=== PATIENT | female | born 1985 | race American Indian/Alaskan Native ===

== ENCOUNTER 2018-04-04 05:48 | Inpatient (IN) | payer OTHER ==
[2018-04-04 06:37] LABS: Basophils # (Auto) 0.1 K/mm3 (0.0-0.1); Basophils % (Auto) 0.5 % (0.0-1.8); Eosinophils # (Auto) 0.1 K/mm3 (0.0-0.4); Eosinophils % (Auto) 0.5 % (0.0-4.3); Hemoglobin 15.3 gm/dl (10.1-14.3); Lymphocytes # (Auto) 1.8 K/mm3 (1.2-5.4); Lymphocytes % (Auto) 9.7 % (13.4-35.0); Mean Corpuscular HGB Conc 34 % (30-34); Mean Corpuscular Hemoglobin 31 pg (28-32); Mean Corpuscular Volume 91 fl (79-97); Monocytes # (Auto) 1.8 K/mm3 (0.0-0.8); Monocytes % (Auto) 10.1 % (0.0-7.3); Platelet Count 478 K/mm3 (140-440); Red Blood Count 4.93 M/mm3 (3.65-5.03); Red Cell Distribution Width 13.2 % (13.2-15.2)
[2018-04-04 07:10] LABS: Alanine Aminotransferase 12 units/L (7-56); Albumin 4.2 g/dL (3.9-5); BUN/Creatinine Ratio 16; Blood Urea Nitrogen 13 mg/dL (7-17); Calcium 9.7 mg/dL (8.4-10.2); Hemolysis Index 0
[2018-04-04] MEDS ORDERED: ZOSYN/NS 4.5GM/100ML 4.5 GM/100 ML VIAL IV ONE (08:55)
[2018-04-04] MEDS ORDERED: NACL 0.9% 1000 ML 1,000 ML IV ONE (08:55)
[2018-04-04] MEDS ORDERED: SUBLIMAZE IV ONE ×2 (08:55→10:00)
[2018-04-04] MEDS ORDERED: ZOFRAN IV ONE (08:55)
--- NOTE | 2018-04-04 08:59 | Emergency Department Report ---
ED Abdominal Pain HPI - General Chief Complaint: Abdominal Pain Stated Complaint: ABD PAIN Time Seen by Provider: 04/04/18 08:49 Source: patient Mode of arrival: Ambulatory Limitations: No Limitations - History of Present Illness Initial Comments: Patient is 32 years old female history diabetes and asthma. Patient presented his abdominal pain for the last 2-3 days associated with his nausea vomiting and diarrhea. Patient described her pain as sharp and crampy sometimes. Pain associated with his fever. Patient stated that she had a test 2 weeks ago and it was positive. She denied any vaginal bleeding or vaginal discharge at this moment. No urinary symptoms. MD Complaint: abdominal pain -: days(s) Location: diffuse, suprapubic Radiation: none Migration to: no migration Severity scale (0 -10): 10 Quality: sharp - Related Data Allergies Allergy/AdvReac Type Severity Reaction Status Date / Time No Known Allergies Allergy Verified 04/04/18 06:06 ED Review of Systems ROS: Stated complaint: ABD PAIN Other details as noted in HPI Comment: All other systems reviewed and negative Constitutional: fever. denies: chills Respiratory: denies: cough, orthopnea, shortness of breath, SOB with exertion Cardiovascular: denies: chest pain, palpitations, dyspnea on exertion Gastrointestinal: abdominal pain, nausea, vomiting, diarrhea. denies: constipation, hematemesis, melena Musculoskeletal: denies: back pain Neurological: denies: headache, weakness, numbness, paresthesias, confusion ED Past Medical Hx - Past Medical History Previous Medical History?: Yes Hx Hypertension: Yes Hx Diabetes: Yes Hx Asthma: Yes - Surgical History Past Surgical History?: Yes Additional Surgical History: x1 - Social History Smoking Status: Current Every Day Smoker Substance Use Type: None ED Physical Exam - General Limitations: No Limitations General appearance: alert, in no apparent distress - Head Head exam: Present: atraumatic, normocephalic - Eye Eye exam: Present: normal appearance - ENT ENT exam: Present: normal exam, normal orophraynx, mucous membranes dry - Neck Neck exam: Present: normal inspection, full ROM. Absent: tenderness, meningismus, lymphadenopathy, thyromegaly - Respiratory Respiratory exam: Present: normal lung sounds bilaterally. Absent: respiratory distress, wheezes, rales, rhonchi, stridor, chest wall tenderness, accessory muscle use, decreased breath sounds, prolonged expiratory - Cardiovascular Cardiovascular Exam: Present: regular rate, normal rhythm, normal heart sounds - GI/Abdominal GI/Abdominal exam: Present: soft, normal bowel sounds. Absent: distended, tenderness, guarding, rebound, rigid, organomegaly, mass, bruit, pulsatile mass , hernia - Extremities Exam Extremities exam: Present: normal inspection, full ROM, normal capillary refill - Back Exam Back exam: Present: normal inspection, full ROM. Absent: tenderness, CVA tenderness (R), CVA tenderness (L), muscle spasm, paraspinal tenderness, vertebral tenderness - Neurological Exam Neurological exam: Present: alert, oriented X3, CN II-XII intact, normal gait, reflexes normal - Skin Skin exam: Present: warm, dry, intact ED Course Vital Signs 04/04/18 04/04/18 04/04/18 06:06 08:12 09:01 Temperature 100.1 F H 98.8 F Pulse Rate 117 H 110 H 117 H Respiratory 24 29 H 26 H Rate Blood Pressure 145/86 172/96 Blood Pressure 149/69 [Left] O2 Sat by Pulse 95 90 92 Oximetry 04/04/18 04/04/18 04/04/18 10:00 10:57 11:00 Temperature Pulse Rate 105 H 111 H Respiratory 27 H 16 Rate Blood Pressure 162/85 164/117 Blood Pressure [Left] O2 Sat by Pulse 96 96 97 Oximetry 04/04/18 04/04/18 12:00 13:01 Temperature Pulse Rate 105 H 108 H Respiratory 22 21 Rate Blood Pressure 164/83 126/79 Blood Pressure [Left] O2 Sat by Pulse 99 93 Oximetry ED Medical Decision Making - Lab Data Result diagrams: 04/04/18 06:15 04/04/18 06:15 - Radiology Data Radiology results: report reviewed Referring Physician: OLESYA DANIELSON Patient Name: JUAN M PEPE Date of : 1985 Sex: Female Report Date: 2018-04-04 Report Status: Finalized Findings [facility] [address] [place] [address] Cat Scan Report Signed Patient: JUAN M PEPE MR#: [id number] : 1985 Acct:[id number] Age/Sex: 32 / F ADM Date: 04/04/18 Loc: ED Attending Dr: Ordering Physician: OLESYA DANIELSON Date of Service: 04/04/18 Procedure(s): CT abdomen pelvis w con Accession Number(s): [id number] cc: OLESYA DANIELSON FINAL REPORT EXAM: CT ABDOMEN PELVIS W CON HISTORY: abdominal pain TECHNIQUE: CT of the abdomen and pelvis with IV contrast. Coronal and sagittal reconstructed imaging provided. PRIORS: None currently available. FINDINGS: ABDOMEN: Nonspecific patchy ground-glass opacities in both lung bases may be related to mosaic profusion. Heart size is within normal limits. No pericardial effusion. Prior cholecystectomy. Heterogeneous low attenuation to the liver may represent hepatocellular disease or fatty infiltration. No suspicious enhancement or lesions identified. Small hiatal hernia. Stomach is otherwise unremarkable. Spleen, pancreas, adrenals, and kidneys are unremarkable. There is no abdominal aortic aneurysm. No dissection. IVC is unremarkable. There is no periaortic or retroperitoneal adenopathy or mass. Jabb-pg-[id number] distended mid and distal small bowel loops identified. Some wall thickening particularly around the terminal ileum noted. Hyperemia identified. A few air-fluid levels identified. Appendix is normal. Fluid stool in the mildly distended cecum. Some mild wall thickening of the cecum and proximal ascending colon. Distal ascending colon to the rectum is collapsed which limits evaluation for wall thickening. No obvious stranding. No free air. Trace free fluid identified. Mesentery is unremarkable. Fat-containing umbilical hernia without strangulation. PELVIS: Lobulated enlarged uterus with heterogeneous attenuation suggests fibroid uterus. Small to moderate free fluid in the pelvis is nonspecific. Bladder is unremarkable. No wall thickening. There is no pelvic mass or adenopathy. Inguinal regions are unremarkable. Bones: No suspicious osseous lesions on this limited examination of the skeleton. Metastatic disease better evaluated with bone scan. IMPRESSION: Bowel findings suggest enterocolitis. Differential diagnosis would include low grade incomplete obstruction and ileus. Diarrhea suspected in the right proximal colon. No evidence for complete obstruction. Small to moderate free fluid in the abdomen pelvis is nonspecific. Findings could be related to enterocolitis. Fatty liver versus hepatocellular disease. Fatty liver favored. No distinct lesions. Suspect fibroid uterus. Correlation with pelvic ultrasound may be helpful if clinically indicated. Transcribed By: TYM Dictated By: GLORIA WONG MD Electronically Authenticated By: GLORIA WONG MD Signed Date/Time: 04/04/181132 DD/ 32 TD/TT: 04/04/181132 - Medical Decision Making I discussed the patient with Dr Brannon, he agreed to admit to his service. Critical care attestation.: If time is entered above; I have spent that time in minutes in the direct care of this critically ill patient, excluding procedure time. ED Disposition Clinical Impression: Abdominal pain, Enterocolitis Disposition: OP ADMIT IP TO THIS HOSP Is pt being admited?: Yes Condition: Stable Instructions: Abdominal Pain (ED) Referrals: PRIMARY CARE, [Primary Care Provider] - 3-5 Days
--- NOTE | 2018-04-04 11:38 | Cat Scan Report ---
FINAL REPORT EXAM: CT ABDOMEN PELVIS W CON HISTORY: abdominal pain TECHNIQUE: CT of the abdomen and pelvis with IV contrast. Coronal and sagittal reconstructed imaging provided. PRIORS: None currently available. FINDINGS: ABDOMEN: Nonspecific patchy ground-glass opacities in both lung bases may be related to mosaic profusion. Heart size is within normal limits. No pericardial effusion. Prior cholecystectomy. Heterogeneous low attenuation to the liver may represent hepatocellular disease or fatty infiltration. No suspicious enhancement or lesions identified. Small hiatal hernia. Stomach is otherwise unremarkable. Spleen, pancreas, adrenals, and kidneys are unremarkable. There is no abdominal aortic aneurysm. No dissection. IVC is unremarkable. There is no periaortic or retroperitoneal adenopathy or mass. [id number] distended mid and distal small bowel loops identified. Some wall thickening particularly around the terminal ileum noted. Hyperemia identified. A few air-fluid levels identified. Appendix is normal. Fluid stool in the mildly distended cecum. Some mild wall thickening of the cecum and proximal ascending colon. Distal ascending colon to the rectum is collapsed which limits evaluation for wall thickening. No obvious stranding. No free air. Trace free fluid identified. Mesentery is unremarkable. Fat-containing umbilical hernia without strangulation. PELVIS: Lobulated enlarged uterus with heterogeneous attenuation suggests fibroid uterus. Small to moderate free fluid in the pelvis is nonspecific. Bladder is unremarkable. No wall thickening. There is no pelvic mass or adenopathy. Inguinal regions are unremarkable. Bones: No suspicious osseous lesions on this limited examination of the skeleton. Metastatic disease better evaluated with bone scan. IMPRESSION: Bowel findings suggest enterocolitis. Differential diagnosis would include low grade incomplete obstruction and ileus. Diarrhea suspected in the right proximal colon. No evidence for complete obstruction. Small to moderate free fluid in the abdomen pelvis is nonspecific. Findings could be related to enterocolitis. Fatty liver versus hepatocellular disease. Fatty liver favored. No distinct lesions. Suspect fibroid uterus. Correlation with pelvic ultrasound may be helpful if clinically indicated.
[2018-04-04] MEDS ORDERED: TORADOL IV ONE (12:00)
[2018-04-04] MEDS ORDERED: TORADOL ONE (12:06)
[2018-04-04 12:25] LABS: Bilirubin,Urine NEG (Negative); Blood,Urine NEG (Negative); Color,Urine Yellow (Yellow); Mucus,Urine FEW /HPF
[2018-04-04 12:30] LABS: HCG Qualitative,Urine Negative (Negative)
[2018-04-04] MEDS ORDERED: SODIUM CHLORIDE FLUSH SYRINGE 10 ML IV PRN (20:35)
[2018-04-04] MEDS ORDERED: ZOFRAN IV PRN (20:35)
[2018-04-04] MEDS ORDERED: TYLENOL PO PRN (20:35)
[2018-04-04] MEDS: FLAGYL 500 MG/100 ML 500 MG/100 ML BAG IV SCH (22:50)
[2018-04-04] MEDS: PEPCID IV SCH (22:52)
[2018-04-05] MEDS: MORPHINE IV PRN ×3 (00:03→17:52)
[2018-04-05] MEDS: D5NS 1,000 ML IV SCH ×3 (03:00→17:34)
--- NOTE | 2018-04-05 06:27 | History and Physical Report ---
History of Present Illness Date of examination: 04/04/18 Date of admission: 04/04/18 16:07 Chief complaint: CC Abdominal pain 2 to 3 days History of present illness: History of Present Illness: Patient is 32 years old female history diabetes and asthma. Patient presented with abdominal pain for the last 2-3 days associated with his nausea vomiting and diarrhea. Patient described her pain as sharp and crampy sometimes. Pain associated with his fever. Patient stated that she had a test 2 weeks ago and it was positive. She denied any vaginal bleeding or vaginal discharge at this moment. No urinary symptoms. MD Complaint: abdominal rick -: days(s) Location: diffuse, suprapubic Radiation: none Migration to: no migration Severity scale (0 -10): 10 Quality: sharp Past Medical History Previous Medical History?: Yes Hx Hypertension: Yes Hx Diabetes: Yes Hx Asthma: Yes Surgical History Past Surgical History?: Yes Additional Surgical History: x1 Social History Smoking Status: Current Every Day Smoker Substance Use Type: None ROS: Stated complaint: ABD PAIN Other details as noted in HPI Comment: All other systems reviewed and negative Constitutional: fever. denies: chills Respiratory: denies: cough, orthopnea, shortness of breath, SOB with exertion Cardiovascular: denies: chest pain, palpitations, dyspnea on exertion Gastrointestinal: abdominal pain, nausea, vomiting, diarrhea. denies: constipation, hematemesis, melena Musculoskeletal: denies: back pain Neurological: denies: headache, weakness, numbness, paresthesias, confusion Medications and Allergies Allergies Allergy/AdvReac Type Severity Reaction Status Date / Time No Known Allergies Allergy Verified 04/04/18 06:06 Active Meds: Active Medications Acetaminophen (Tylenol) 650 mg PO Q4H PRN PRN Reason: Pain MILD(1-3)/Fever >100.5/DIAZ Famotidine (Pepcid) 20 mg IV BID PABLO Last Admin: 04/04/18 22:52 Dose: 20 mg Dextrose/Sodium Chloride (D5ns) 1,000 mls @ 100 mls/hr IV DIRECT PABLO Last Admin: 04/05/18 03:00 Dose: 100 mls/hr Piperacillin Sod/Tazobactam Sod (Zosyn/Ns 4.5gm/100ml) 4.5 gm in 100 mls @ 200 mls/hr IV Q8HR PABLO; Protocol Metronidazole (Flagyl 500 Mg/100 Ml) 500 mg in 100 mls @ 100 mls/hr IV Q8H PABLO ; Protocol Last Admin: 04/04/18 22:50 Dose: 100 mls/hr Morphine Sulfate (Morphine) 4 mg IV Q4H PRN PRN Reason: Pain, Moderate (4-6) Last Admin: 04/05/18 00:03 Dose: 4 mg Ondansetron HCl (Zofran) 4 mg IV Q8H PRN PRN Reason: Nausea And Vomiting Sodium Chloride (Sodium Chloride Flush Syringe 10 Ml) 10 ml IV BID PABLO Sodium Chloride (Sodium Chloride Flush Syringe 10 Ml) 10 ml IV PRN PRN PRN Reason: LINE FLUSH Exam - Constitutional Vitals: Temp Pulse Resp BP Pulse Ox 107.0 F H 106 H 18 148/90 100 04/05/18 05:34 04/05/18 05:34 04/05/18 05:34 04/05/18 05:34 04/05/18 05:34 General appearance: Present: no acute distress, well-nourished - EENT Eyes: Present: PERRL ENT: hearing intact, clear oral mucosa - Neck Neck: Present: supple, normal ROM - Respiratory Respiratory effort: normal Respiratory: bilateral: CTA - Cardiovascular Heart rate: 78 Rhythm: regular Heart Sounds: Present: S1 & S2. Absent: rub, click - Extremities Extremities: no ischemia, pulses intact, pulses symmetrical, No edema Peripheral Pulses: within normal limits - Abdominal General gastrointestinal: Present: soft, tender, non-distended, normal bowel sounds Localized gastrointestinal: tender: diffuse, guarding: diffuse Female genitourinary: Present: normal - Rectal Rectal Exam: deferred - Integumentary Integumentary: Present: clear, warm, dry - Musculoskeletal Musculoskeletal: gait normal, strength equal bilaterally - Psychiatric Psychiatric: appropriate mood/affect, intact judgment & insight - Neurologic Neurologic: CNII-XII intact, moves all extremities - Allied Health Allied health notes reviewed: nursing, case management Results - Labs CBC & Chem 7: 04/04/18 06:15 04/04/18 06:15 Labs: Laboratory Last Values WBC 18.2 K/mm3 (4.5-11.0) H 04/04/18 06:15 RBC 4.93 M/mm3 (3.65-5.03) 04/04/18 06:15 Hgb 15.3 gm/dl (10.1-14.3) H 04/04/18 06:15 Hct 45.0 % (30.3-42.9) H 04/04/18 06:15 MCV 91 fl (79-97) 04/04/18 06:15 MCH 31 pg (28-32) 04/04/18 06:15 MCHC 34 % (30-34) 04/04/18 06:15 RDW 13.2 % (13.2-15.2) 04/04/18 06:15 Plt Count 478 K/mm3 (140-440) H 04/04/18 06:15 Lymph % (Auto) 9.7 % (13.4-35.0) L 04/04/18 06:15 [place] % (Auto) 10.1 % (0.0-7.3) H 04/04/18 06:15 Eos % (Auto) 0.5 % (0.0-4.3) 04/04/18 06:15 Baso % (Auto) 0.5 % (0.0-1.8) 04/04/18 06:15 Lymph # 1.8 K/mm3 (1.2-5.4) 04/04/18 06:15 [place] # 1.8 K/mm3 (0.0-0.8) H 04/04/18 06:15 Eos # 0.1 K/mm3 (0.0-0.4) 04/04/18 06:15 Baso # 0.1 K/mm3 (0.0-0.1) 04/04/18 06:15 Seg Neutrophils % 79.2 % (40.0-70.0) H 04/04/18 06:15 Seg Neutrophils # 14.4 K/mm3 (1.8-7.7) H 04/04/18 06:15 Sodium 133 mmol/L (137-145) L 04/04/18 06:15 Potassium 3.9 mmol/L (3.6-5.0) 04/04/18 06:15 Chloride 92.8 mmol/L (98-107) L 04/04/18 06:15 Carbon Dioxide 24 mmol/L (22-30) 04/04/18 06:15 Anion Gap 20 mmol/L 04/04/18 06:15 BUN 13 mg/dL (7-17) 04/04/18 06:15 Creatinine 0.8 mg/dL (0.7-1.2) 04/04/18 06:15 Estimated GFR > 60 ml/min 04/04/18 06:15 BUN/Creatinine Ratio 16 % 04/04/18 06:15 Glucose 222 mg/dL (65-100) H 04/04/18 06:15 Calcium 9.7 mg/dL (8.4-10.2) 04/04/18 06:15 Total Bilirubin 1.00 mg/dL (0.1-1.2) 04/04/18 06:15 AST 14 units/L (5-40) 04/04/18 06:15 ALT 12 units/L (7-56) 04/04/18 06:15 Alkaline Phosphatase 99 units/L (35-129) 04/04/18 06:15 Total Protein 8.7 g/dL (6.3-8.2) H 04/04/18 06:15 Albumin 4.2 g/dL (3.9-5) 04/04/18 06:15 Albumin/Globulin Ratio 0.9 % 04/04/18 06:15 Lipase 33 units/L (13-60) 04/04/18 09:17 HCG, Qual Negative (Negative) 04/04/18 06:15 Urine Color Yellow (Yellow) 04/04/18 12:11 Urine Turbidity Clear (Clear) 04/04/18 12:11 Urine pH 5.0 (5.0-7.0) 04/04/18 12:11 Ur Specific [place] 1.047 (1.003-1.030) H 04/04/18 12:11 Urine Protein 30 mg/dl mg/dL (Negative) 04/04/18 12:11 Urine Glucose (UA) >=500 mg/dL (Negative) 04/04/18 12:11 Urine Ketones 80 mg/dL (Negative) 04/04/18 12:11 Urine Blood Neg (Negative) 04/04/18 12:11 Urine Nitrite Neg (Negative) 04/04/18 12:11 Urine Bilirubin Neg (Negative) 04/04/18 12:11 Urine Urobilinogen 2.0 mg/dL (<2.0) 04/04/18 12:11 Ur Leukocyte Esterase Neg (Negative) 04/04/18 12:11 Urine WBC (Auto) 2.0 /HPF (0.0-6.0) 04/04/18 12:11 Urine RBC (Auto) 3.0 /HPF (0.0-6.0) 04/04/18 12:11 U Epithel Cells (Auto) < 1.0 /HPF (0-13.0) 04/04/18 12:11 Urine Mucus Few /HPF 04/04/18 12:11 Urine HCG, Qual Negative (Negative) 04/04/18 12:11 - Imaging and Cardiology CT scan - abdomen: report reviewed Imaging and Cardiology: CT Abdomen : IMPRESSION: Bowel findings suggest enterocolitis. Differential diagnosis would include low grade incomplete obstruction and ileus. Diarrhea suspected in the right proximal colon. No evidence for complete obstruction. Small to moderate free fluid in the abdomen pelvis is nonspecific. Findings could be related to enterocolitis. Fatty liver versus hepatocellular disease. Fatty liver favored. No distinct lesions. Suspect fibroid uterus. Correlation with pelvic ultrasound may be helpful if clinically indicated. Assessment and Plan Advance Directives: Yes (Full code) VTE prophylaxis?: Chemical Plan of care discussed with patient/family: Yes - Patient Problems (1) SIRS (systemic inflammatory response syndrome) Current Visit: Yes Status: Acute Plan to address problem: High White count C/w SIRS (2) Enterocolitis Current Visit: Yes Status: Acute Plan to address problem: Patient on clear Liquids IV Zosyn and IV Flagyl GI consult Surgey consult (3) HTN (hypertension) Current Visit: Yes Status: Chronic Qualifiers: Hypertension type: essential hypertension Qualified Code(s): I10 - Essential (primary) hypertension Plan to address problem: losartan 50 mg po qd (4) T2DM (type 2 diabetes mellitus) Current Visit: Yes Status: Chronic Qualifiers: Diabetes mellitus assisted insulin use: without assisted use Plan to address problem: Coverage for now (5) Asthma Current Visit: Yes Status: Inactive Qualifiers: Asthma severity: mild Plan to address problem: Albuterol MDI Prn (6) DVT prophylaxis Current Visit: Yes Status: Acute Plan to address problem: On Lovenox
--- NOTE | 2018-04-05 08:13 | Progress Note ---
Assessment and Plan Assessment and plan: Enterocolitis. Continue Zosyn and Flagyl iv NPO iv fluids Morphine iv prn pain Abdominal pain. Possible partial small bowel obstruction versus ileus. Make NPO GI consulted I later discussed with Dr. Li and he recommends Surg consult Diabetes mellitus type 2. Fingerstick q 6h Full code status. Called later by Nurse that patient refused NG tube History Interval history: Abdominal pain, nausea, vomiting,diarrhea Hospitalist Physical - Physical exam Narrative exam: Gen : Not in acute distress, obese HEENT:Normocephalic, atraumatic Neck: supple, No JVD Lungs: Clear to auscultation, bilaterally, no rhonchi, no wheeze Heart :S1 and S2 reg, no murmurs, rubs or gallop Abd:soft, tender mid and lower abdomen, no rebound tenderness, mild distension, decreased bowel sounds Ext: No edema, no clubbing, no cyanosis, Neuro: Awake,alert,oriented x 3, no focal signs - Constitutional Vitals: Temp Pulse Resp BP Pulse Ox 107.0 F H 106 H 18 148/90 100 04/05/18 05:34 04/05/18 05:34 04/05/18 05:34 04/05/18 05:34 04/05/18 05:34 General appearance: Present: no acute distress, obese Results - Labs CBC & Chem 7: 04/06/18 06:46 04/06/18 06:46 Labs: Laboratory Last Values WBC 18.2 K/mm3 (4.5-11.0) H 04/04/18 06:15 RBC 4.93 M/mm3 (3.65-5.03) 04/04/18 06:15 Hgb 15.3 gm/dl (10.1-14.3) H 04/04/18 06:15 Hct 45.0 % (30.3-42.9) H 04/04/18 06:15 MCV 91 fl (79-97) 04/04/18 06:15 MCH 31 pg (28-32) 04/04/18 06:15 MCHC 34 % (30-34) 04/04/18 06:15 RDW 13.2 % (13.2-15.2) 04/04/18 06:15 Plt Count 478 K/mm3 (140-440) H 04/04/18 06:15 Lymph % (Auto) 9.7 % (13.4-35.0) L 04/04/18 06:15 [place] % (Auto) 10.1 % (0.0-7.3) H 04/04/18 06:15 Eos % (Auto) 0.5 % (0.0-4.3) 04/04/18 06:15 Baso % (Auto) 0.5 % (0.0-1.8) 04/04/18 06:15 Lymph # 1.8 K/mm3 (1.2-5.4) 04/04/18 06:15 [place] # 1.8 K/mm3 (0.0-0.8) H 04/04/18 06:15 Eos # 0.1 K/mm3 (0.0-0.4) 04/04/18 06:15 Baso # 0.1 K/mm3 (0.0-0.1) 04/04/18 06:15 Seg Neutrophils % 79.2 % (40.0-70.0) H 04/04/18 06:15 Seg Neutrophils # 14.4 K/mm3 (1.8-7.7) H 04/04/18 06:15 Sodium 133 mmol/L (137-145) L 04/04/18 06:15 Potassium 3.9 mmol/L (3.6-5.0) 04/04/18 06:15 Chloride 92.8 mmol/L (98-107) L 04/04/18 06:15 Carbon Dioxide 24 mmol/L (22-30) 04/04/18 06:15 Anion Gap 20 mmol/L 04/04/18 06:15 BUN 13 mg/dL (7-17) 04/04/18 06:15 Creatinine 0.8 mg/dL (0.7-1.2) 04/04/18 06:15 Estimated GFR > 60 ml/min 04/04/18 06:15 BUN/Creatinine Ratio 16 % 04/04/18 06:15 Glucose 222 mg/dL (65-100) H 04/04/18 06:15 Calcium 9.7 mg/dL (8.4-10.2) 04/04/18 06:15 Total Bilirubin 1.00 mg/dL (0.1-1.2) 04/04/18 06:15 AST 14 units/L (5-40) 04/04/18 06:15 ALT 12 units/L (7-56) 04/04/18 06:15 Alkaline Phosphatase 99 units/L (35-129) 04/04/18 06:15 Total Protein 8.7 g/dL (6.3-8.2) H 04/04/18 06:15 Albumin 4.2 g/dL (3.9-5) 04/04/18 06:15 Albumin/Globulin Ratio 0.9 % 04/04/18 06:15 Lipase 33 units/L (13-60) 04/04/18 09:17 HCG, Qual Negative (Negative) 04/04/18 06:15 Urine Color Yellow (Yellow) 04/04/18 12:11 Urine Turbidity Clear (Clear) 04/04/18 12:11 Urine pH 5.0 (5.0-7.0) 04/04/18 12:11 Ur Specific [place] 1.047 (1.003-1.030) H 04/04/18 12:11 Urine Protein 30 mg/dl mg/dL (Negative) 04/04/18 12:11 Urine Glucose (UA) >=500 mg/dL (Negative) 04/04/18 12:11 Urine Ketones 80 mg/dL (Negative) 04/04/18 12:11 Urine Blood Neg (Negative) 04/04/18 12:11 Urine Nitrite Neg (Negative) 04/04/18 12:11 Urine Bilirubin Neg (Negative) 04/04/18 12:11 Urine Urobilinogen 2.0 mg/dL (<2.0) 04/04/18 12:11 Ur Leukocyte Esterase Neg (Negative) 04/04/18 12:11 Urine WBC (Auto) 2.0 /HPF (0.0-6.0) 04/04/18 12:11 Urine RBC (Auto) 3.0 /HPF (0.0-6.0) 04/04/18 12:11 U Epithel Cells (Auto) < 1.0 /HPF (0-13.0) 04/04/18 12:11 Urine Mucus Few /HPF 04/04/18 12:11 Urine HCG, Qual Negative (Negative) 04/04/18 12:11
[2018-04-05 09:11] LABS: Alanine Aminotransferase 8 units/L (7-56); Albumin 2.7 g/dL (3.9-5); BUN/Creatinine Ratio 10; Blood Urea Nitrogen 6 mg/dL (7-17); Hemolysis Index 71
[2018-04-05 09:44] LABS: Basophils # (Auto) 0.1 K/mm3 (0.0-0.1); Basophils % (Auto) 0.4 % (0.0-1.8); Eosinophils # (Auto) 0.1 K/mm3 (0.0-0.4); Eosinophils % (Auto) 0.8 % (0.0-4.3); Hematocrit 37.8 % (30.3-42.9); Hemoglobin 12.9 gm/dl (10.1-14.3); Lymphocytes # (Auto) 1.2 K/mm3 (1.2-5.4); Lymphocytes % (Auto) 8.5 % (13.4-35.0); Mean Corpuscular HGB Conc 34 % (30-34); Mean Corpuscular Hemoglobin 31 pg (28-32); Mean Corpuscular Volume 92 fl (79-97); Monocytes # (Auto) 1.6 K/mm3 (0.0-0.8); Platelet Count 398 K/mm3 (140-440); Red Blood Count 4.12 M/mm3 (3.65-5.03); Red Cell Distribution Width 13.4 % (13.2-15.2)
[2018-04-05] MEDS ORDERED: D50W (25GM) Syringe IV PRN (10:45)
[2018-04-05] MEDS: HumaLOG SUB-Q SCH ×2 (12:59→19:04)
[2018-04-05] MEDS: PEPCID IV SCH ×2 (13:17→21:30)
[2018-04-05] MEDS: ZOSYN/NS 4.5GM/100ML 4.5 GM/100 ML VIAL IV SCH ×4 (13:17→21:26)
[2018-04-05] MEDS: SODIUM CHLORIDE FLUSH SYRINGE 10 ML IV SCH ×2 (13:24→22:33)
[2018-04-05] MEDS: FLAGYL 500 MG/100 ML 500 MG/100 ML BAG IV SCH ×3 (16:03→22:33)
--- NOTE | 2018-04-05 16:56 | Gastroenterology Consultation ---
History of Present Illness - Reason for Consult Consult date: 04/05/18 abdominal pain Requesting physician: MOHINDER CM - History of Present Illness The patient is a 32-year-old female with insulin-dependent diabetes mellitus was in her baseline state of health until a few days ago when she developed progressive severe abdominal pain which was diffuse. The patient had an abnormal CT scan of the abdomen revealing some thickening and dilation of the distal jejunal loops of bowel with no distention of the colon. She has had some vomiting today and reports passing no flatus or stool for the past 24 hours. She has had a section and laparoscopic cholecystectomy. The patient has no prior history of abdominal pain. She denies passage of bloody or melenic stool. There is no history of weight loss. Past History Past Medical History: diabetes Past Surgical History: cholecystectomy, Social history: no significant social history, lives with family Family history: no significant family history Medications and Allergies Allergies Allergy/AdvReac Type Severity Reaction Status Date / Time No Known Allergies Allergy Verified 04/04/18 06:06 Active Meds: Active Medications Acetaminophen (Tylenol) 650 mg PO Q4H PRN PRN Reason: Pain MILD(1-3)/Fever >100.5/DIAZ Dextrose (D50w (25gm) Syringe) 50 ml IV PRN PRN PRN Reason: Hypoglycemia Famotidine (Pepcid) 20 mg IV BID [facility] Last Admin: 04/05/18 13:17 Dose: 20 mg Dextrose/Sodium Chloride (D5ns) 1,000 mls @ 100 mls/hr IV DIRECT PABLO Last Admin: 04/05/18 13:17 Dose: 100 mls/hr Piperacillin Sod/Tazobactam Sod (Zosyn/Ns 4.5gm/100ml) 4.5 gm in 100 mls @ 200 mls/hr IV Q8HR PABLO; Protocol Last Admin: 04/05/18 13:27 Dose: 200 mls/hr Metronidazole (Flagyl 500 Mg/100 Ml) 500 mg in 100 mls @ 100 mls/hr IV Q8H PABLO ; Protocol Last Admin: 04/05/18 16:03 Dose: 100 mls/hr Insulin Human Lispro (Humalog) 0 unit SUB-Q Q6HR PABLO; Protocol Last Admin: 04/05/18 12:59 Dose: Not Given Morphine Sulfate (Morphine) 4 mg IV Q4H PRN PRN Reason: Pain, Moderate (4-6) Last Admin: 04/05/18 08:44 Dose: 4 mg Ondansetron HCl (Zofran) 4 mg IV Q8H PRN PRN Reason: Nausea And Vomiting Sodium Chloride (Sodium Chloride Flush Syringe 10 Ml) 10 ml IV BID PABLO Last Admin: 04/05/18 13:24 Dose: 10 ml Sodium Chloride (Sodium Chloride Flush Syringe 10 Ml) 10 ml IV PRN PRN PRN Reason: LINE FLUSH Review of Systems - Review of Systems Constitutional: no weight loss, no weight gain, no fever Eyes: no change in vision Ears, Nose, Throat: no decreased hearing, no difficulty swallowing, no epistaxis Breasts: deferred Cardiovascular: no chest pain, no edema, no rapid/irregular heart beat, no shortness of breath Respiratory: no cough, no shortness of breath, no wheezing Gastrointestinal: abdominal pain, nausea, vomiting, no diarrhea, no constipation , no change in bowel habits, no hematemesis, no melena, no hematochezia, no heartburn Rectal: no pain Female Genitourinary: deferred Musculoskeletal: no gait dysfunction, no joint pain Integumentary: no rash, no pruritis Neurological: no head injury, no paralysis Psychiatric: no anxiety, no memory loss, no change in sleep habits, no suicidal ideation, no depression Endocrine: no cold intolerance, no heat intolerance Hematologic/Lymphatic: no easy bruising, no easy bleeding Allergic/Immunologic: no wheezing, no angioedema Exam - Constitutional Vital Signs: Temp Pulse Resp BP Pulse Ox 100.0 F H 100 H 20 134/91 95 04/05/18 08:28 04/05/18 08:30 04/05/18 08:30 04/05/18 08:30 04/05/18 08:30 General appearance: well-nourished, other (appears to be in moderate distress from abdominal pain) - EENT Eyes: PERRL ENT: hearing intact, clear oral mucosa, dentition normal - Neck Neck: supple, normal ROM, no masses or JVD - Respiratory Respiratory effort: normal Respiratory: bilateral: CTA - Breasts Breasts: deferred - Cardiovascular Rhythm: regular Heart Sounds: Present: S1 & S2. Absent: gallop, rub Extremities: pulses intact, No edema, normal color, Full ROM - Gastrointestinal General gastrointestinal: Present: soft, tender (diffusely tender. No rebound or guarding.), non-distended, normal bowel sounds, other (obese). Absent: hepatomegaly, splenomegaly, mass Rectal Exam: deferred - Genitourinary Female Genitourinary: deferred - Integumentary Integumentary: Present: clear, warm, dry - Neurologic Neurological: alert and oriented x3 - Psychiatric Psychiatric: appropriate mood/affect, intact judgment & insight, memory intact - Labs CBC & Chem 7: 04/05/18 09:30 04/05/18 08:13 Lab Results: Laboratory Results - last 24 hr 04/05/18 04/05/18 04/05/18 08:13 09:30 11:08 WBC 13.5 H RBC 4.12 Hgb 12.9 Hct 37.8 D MCV 92 MCH 31 MCHC 34 RDW 13.4 Plt Count 398 Lymph % (Auto) 8.5 L [place] % (Auto) 12.0 H Eos % (Auto) 0.8 Baso % (Auto) 0.4 Lymph # 1.2 [place] # 1.6 H Eos # 0.1 Baso # 0.1 Seg Neutrophils % 78.3 H Seg Neutrophils # 10.6 H Sodium 131 L Potassium 4.1 Chloride 95.4 L Carbon Dioxide 22 Anion Gap 18 BUN 6 L Creatinine 0.6 L Estimated GFR > 60 BUN/Creatinine Ratio 10 Glucose 290 H POC Glucose Hemoglobin A1c 8.7 H Calcium 9.0 Total Bilirubin 1.00 AST 12 ALT 8 Alkaline Phosphatase 81 Total Protein 7.2 Albumin 2.7 L Albumin/Globulin Ratio 0.6 04/05/18 12:26 WBC RBC Hgb Hct MCV MCH MCHC RDW Plt Count Lymph % (Auto) [place] % (Auto) Eos % (Auto) Baso % (Auto) Lymph # [place] # Eos # Baso # Seg Neutrophils % Seg Neutrophils # Sodium Potassium Chloride Carbon Dioxide Anion Gap BUN Creatinine Estimated GFR BUN/Creatinine Ratio Glucose POC Glucose 236 H Hemoglobin A1c Calcium Total Bilirubin AST ALT Alkaline Phosphatase Total Protein Albumin Albumin/Globulin Ratio - Imaging CT Scan: report reviewed, image reviewed (dilated loops of distal jejunum in the right lower quadrant mild wall thickening or present. Colon is nondilated.) Assessment and Plan - Patient Problems (1) Abdominal pain Current Visit: Yes Status: Acute Plan to address problem: The patient has fairly severe, new abdominal pain and dilated loops of distal small bowel suggestive of an evolving obstruction. She has had some vomiting today but no passage of flatus or stool. Ischemia is a possibility although less likely because of her age. I'm concerned about an acute process and the patient should have a surgical consultation. Consider nasogastric suction if there is any further vomiting. Follow-up imaging would be useful with either plain Raise with [address] scan. I will order a lactate level. The issues of her care have been discussed with the hospitalist. You very much Dr. Stokes for asking me to see Ms. Peoples in consultation (2) T2DM (type 2 diabetes mellitus) Current Visit: Yes Status: Chronic Qualifiers: Diabetes mellitus intermediate card tender insulin use: without chcf use (3) Asthma Current Visit: Yes Status: Inactive Qualifiers: Asthma severity: mild
[2018-04-05] MEDS: NACL 0.9% 1000 ML 1,000 ML IV SCH (17:53)
[2018-04-05] MEDS ORDERED: APRESOLINE IV PRN (19:52)
--- NOTE | 2018-04-05 20:42 | XRay Report ---
FINAL REPORT EXAM: XR ABDOMEN 2V HISTORY: bowel obstruction COMPARISON: None available. FINDINGS: Supine and upright AP views of the abdomen obtained. No gross free air. Mild gas-filled prominence of the colon. This remains within physiologic limits. There may be mild ileus. Colon measures up to 5 centimeters in diameter. No gross pathological calcifications. IMPRESSION: Possible mild colonic ileus. No keith bowel obstruction.
[2018-04-06] MEDS: MORPHINE IV PRN ×2 (02:13→09:08)
[2018-04-06] MEDS: NACL 0.9% 1000 ML 1,000 ML IV SCH ×2 (02:15→09:54)
[2018-04-06] MEDS: HumaLOG SUB-Q SCH ×4 (05:31→20:03)
[2018-04-06] MEDS: ZOSYN/NS 4.5GM/100ML 4.5 GM/100 ML VIAL IV SCH ×3 (06:01→23:51)
[2018-04-06] MEDS: FLAGYL 500 MG/100 ML 500 MG/100 ML BAG IV SCH ×2 (06:37→14:24)
[2018-04-06 07:30] LABS: Basophils # (Auto) 0.1 K/mm3 (0.0-0.1); Basophils % (Auto) 0.4 % (0.0-1.8); Eosinophils # (Auto) 0.1 K/mm3 (0.0-0.4); Eosinophils % (Auto) 0.7 % (0.0-4.3); Hematocrit 37.5 % (30.3-42.9); Hemoglobin 12.6 gm/dl (10.1-14.3); Lymphocytes # (Auto) 1.5 K/mm3 (1.2-5.4); Lymphocytes % (Auto) 10.7 % (13.4-35.0); Mean Corpuscular HGB Conc 34 % (30-34); Mean Corpuscular Hemoglobin 31 pg (28-32); Mean Corpuscular Volume 92 fl (79-97); Monocytes # (Auto) 1.7 K/mm3 (0.0-0.8); Platelet Count 411 K/mm3 (140-440); Red Blood Count 4.06 M/mm3 (3.65-5.03); Red Cell Distribution Width 13.3 % (13.2-15.2)
[2018-04-06 07:55] LABS: Alanine Aminotransferase 8 units/L (7-56); Albumin 2.8 g/dL (3.9-5); BUN/Creatinine Ratio 8; Blood Urea Nitrogen 4 mg/dL (7-17); Calcium 8.8 mg/dL (8.4-10.2); Hemolysis Index 1
--- NOTE | 2018-04-06 09:45 | Progress Note ---
Assessment and Plan Assessment and plan: Enterocolitis. Continue Zosyn and Flagyl iv keep NPO iv fluids NG tube ordered from yesterday but she refused Morphine iv prn pain Abdominal pain. Possible partial small bowel obstruction versus ileus. Keep NPO GI and surgeon on consult Diabetes mellitus type 2. Fingerstick q 6h Hypokalemia. Replace and recheck asthma. stable Full code status. History Interval history: Still has Abdominal pain, nausea, vomiting, subsided, no more diarrhea Hospitalist Physical - Physical exam Narrative exam: Gen : Not in acute distress, obese HEENT:Normocephalic, atraumatic Neck: supple, No JVD Lungs: Clear to auscultation, bilaterally, no rhonchi, no wheeze Heart :S1 and S2 reg, no murmurs, rubs or gallop Abd:soft, tender mid and lower abdomen, no rebound tenderness, mild distension, decreased bowel sounds Ext: No edema, no clubbing, no cyanosis, Neuro: Awake,alert,oriented x 3, no focal signs - Constitutional Vitals: Temp Pulse Resp BP Pulse Ox 98.9 F 98 H 18 138/86 98 04/06/18 05:38 04/06/18 05:38 04/06/18 05:38 04/06/18 05:38 04/06/18 05:38 General appearance: Present: no acute distress, well-nourished Results - Labs CBC & Chem 7: 04/06/18 06:46 04/06/18 06:46 Labs: Laboratory Last Values WBC 14.1 K/mm3 (4.5-11.0) H 04/06/18 06:46 RBC 4.06 M/mm3 (3.65-5.03) 04/06/18 06:46 Hgb 12.6 gm/dl (10.1-14.3) 04/06/18 06:46 Hct 37.5 % (30.3-42.9) 04/06/18 06:46 MCV 92 fl (79-97) 04/06/18 06:46 MCH 31 pg (28-32) 04/06/18 06:46 MCHC 34 % (30-34) 04/06/18 06:46 RDW 13.3 % (13.2-15.2) 04/06/18 06:46 Plt Count 411 K/mm3 (140-440) 04/06/18 06:46 Lymph % (Auto) 10.7 % (13.4-35.0) L 04/06/18 06:46 [place] % (Auto) 12.0 % (0.0-7.3) H 04/06/18 06:46 Eos % (Auto) 0.7 % (0.0-4.3) 04/06/18 06:46 Baso % (Auto) 0.4 % (0.0-1.8) 04/06/18 06:46 Lymph # 1.5 K/mm3 (1.2-5.4) 04/06/18 06:46 [place] # 1.7 K/mm3 (0.0-0.8) H 04/06/18 06:46 Eos # 0.1 K/mm3 (0.0-0.4) 04/06/18 06:46 Baso # 0.1 K/mm3 (0.0-0.1) 04/06/18 06:46 Seg Neutrophils % 76.2 % (40.0-70.0) H 04/06/18 06:46 Seg Neutrophils # 10.7 K/mm3 (1.8-7.7) H 04/06/18 06:46 Sodium 138 mmol/L (137-145) D 04/06/18 06:46 Potassium 3.5 mmol/L (3.6-5.0) L 04/06/18 06:46 Chloride 98.7 mmol/L (98-107) 04/06/18 06:46 Carbon Dioxide 25 mmol/L (22-30) 04/06/18 06:46 Anion Gap 18 mmol/L 04/06/18 06:46 BUN 4 mg/dL (7-17) L 04/06/18 06:46 Creatinine 0.5 mg/dL (0.7-1.2) L 04/06/18 06:46 Estimated GFR > 60 ml/min 04/06/18 06:46 BUN/Creatinine Ratio 8 % 04/06/18 06:46 Glucose 129 mg/dL (65-100) H 04/06/18 06:46 POC Glucose 130 (70-105) H 04/06/18 07:50 Hemoglobin A1c 8.7 % (4-6) H 07/08/18 11:08 Lactic Acid 0.90 mmol/L (0.7-2.0) 04/05/18 17:27 Calcium 8.8 mg/dL (8.4-10.2) 04/06/18 06:46 Total Bilirubin 1.10 mg/dL (0.1-1.2) 04/06/18 06:46 AST 11 units/L (5-40) 04/06/18 06:46 ALT 8 units/L (7-56) 04/06/18 06:46 Alkaline Phosphatase 81 units/L (35-129) 04/06/18 06:46 Total Protein 6.8 g/dL (6.3-8.2) 04/06/18 06:46 Albumin 2.8 g/dL (3.9-5) L 04/06/18 06:46 Albumin/Globulin Ratio 0.7 % 04/06/18 06:46 Lipase 33 units/L (13-60) 04/04/18 09:17 HCG, Qual Negative (Negative) 04/04/18 06:15 Urine Color Yellow (Yellow) 04/04/18 12:11 Urine Turbidity Clear (Clear) 04/04/18 12:11 Urine pH 5.0 (5.0-7.0) 04/04/18 12:11 Ur Specific [place] 1.047 (1.003-1.030) H 04/04/18 12:11 Urine Protein 30 mg/dl mg/dL (Negative) 04/04/18 12:11 Urine Glucose (UA) >=500 mg/dL (Negative) 04/04/18 12:11 Urine Ketones 80 mg/dL (Negative) 04/04/18 12:11 Urine Blood Neg (Negative) 04/04/18 12:11 Urine Nitrite Neg (Negative) 04/04/18 12:11 Urine Bilirubin Neg (Negative) 04/04/18 12:11 Urine Urobilinogen 2.0 mg/dL (<2.0) 04/04/18 12:11 Ur Leukocyte Esterase Neg (Negative) 04/04/18 12:11 Urine WBC (Auto) 2.0 /HPF (0.0-6.0) 04/04/18 12:11 Urine RBC (Auto) 3.0 /HPF (0.0-6.0) 04/04/18 12:11 U Epithel Cells (Auto) < 1.0 /HPF (0-13.0) 04/04/18 12:11 Urine Mucus Few /HPF 04/04/18 12:11 Urine HCG, Qual Negative (Negative) 04/04/18 12:11
[2018-04-06] MEDS: SODIUM CHLORIDE FLUSH SYRINGE 10 ML IV SCH ×2 (09:53→23:58)
[2018-04-06] MEDS: PEPCID IV SCH ×2 (09:53→23:56)
--- NOTE | 2018-04-06 10:20 | Gastroenterology Progress Note ---
<TERRELL CHURCHArlette - Last Filed: 04/06/18 10:29> Assessment and Plan 1.abdominal pain 2.DM 3.asthma -temp 98.9 -WBC 14.1-trending up -lactic acid-WNL -CT showed dilated loops of distal jejunum in the right lower quadrant with mild wall thickening. colon is nondilated -KUB showed ileus -etiology unclear- possible evolving obstruction? (ischemia is possible although less likely due to age vs acute process) -surgical consult is pending -clinically patient reports continued abd pain with nausea but denies recent episodes of vomiting and has passed flatus but no BM -NPO-she is currently refusing NG -continue empiric antibiotics and supportive care -further recommendations to follow Subjective Date of service: 04/06/18 Principal diagnosis: abdominal pain Interval history: Patient resting in bed w/o acute distress. Reports continued generalized lower abd pain and nausea but no vomiting. No BM but states she has passed flatus. Objective - Constitutional Vitals: Temp Pulse Resp BP Pulse Ox 98.9 F 98 H 18 138/86 98 04/06/18 05:38 04/06/18 05:38 04/06/18 05:38 04/06/18 05:38 04/06/18 05:38 General appearance: no acute distress, other (drowsy) - Respiratory Respiratory: bilateral: CTA (anterior) - Cardiovascular Rhythm: regular Heart Sounds: Present: S1 & S2 - Gastrointestinal General gastrointestinal: Present: soft, tender (generalized TTP), non-distended , hypoactive bowel sounds - Labs CBC & Chem 7: 04/06/18 06:46 04/06/18 06:46 Labs: Laboratory Results - last 24 hr 04/05/18 04/05/18 04/05/18 11:08 12:26 17:27 WBC RBC Hgb Hct MCV MCH MCHC RDW Plt Count Lymph % (Auto) [place] % (Auto) Eos % (Auto) Baso % (Auto) Lymph # [place] # Eos # Baso # Seg Neutrophils % Seg Neutrophils # Sodium Potassium Chloride Carbon Dioxide Anion Gap BUN Creatinine Estimated GFR BUN/Creatinine Ratio Glucose POC Glucose 236 H Hemoglobin A1c 8.7 H Lactic Acid 0.90 Calcium Total Bilirubin AST ALT Alkaline Phosphatase Total Protein Albumin Albumin/Globulin Ratio 04/05/18 04/05/18 04/06/18 18:51 22:12 06:46 WBC 14.1 H RBC 4.06 Hgb 12.6 Hct 37.5 MCV 92 MCH 31 MCHC 34 RDW 13.3 Plt Count 411 Lymph % (Auto) 10.7 L [place] % (Auto) 12.0 H Eos % (Auto) 0.7 Baso % (Auto) 0.4 Lymph # 1.5 [place] # 1.7 H Eos # 0.1 Baso # 0.1 Seg Neutrophils % 76.2 H Seg Neutrophils # 10.7 H Sodium Potassium Chloride Carbon Dioxide Anion Gap BUN Creatinine Estimated GFR BUN/Creatinine Ratio Glucose POC Glucose 188 H 146 H Hemoglobin A1c Lactic Acid Calcium Total Bilirubin AST ALT Alkaline Phosphatase Total Protein Albumin Albumin/Globulin Ratio 04/06/18 04/06/18 04/06/18 06:46 06:57 07:50 WBC RBC Hgb Hct MCV MCH MCHC RDW Plt Count Lymph % (Auto) [place] % (Auto) Eos % (Auto) Baso % (Auto) Lymph # [place] # Eos # Baso # Seg Neutrophils % Seg Neutrophils # Sodium 138 D Potassium 3.5 L Chloride 98.7 Carbon Dioxide 25 Anion Gap 18 BUN 4 L Creatinine 0.5 L Estimated GFR > 60 BUN/Creatinine Ratio 8 Glucose 129 H POC Glucose 136 H 130 H Hemoglobin A1c Lactic Acid Calcium 8.8 Total Bilirubin 1.10 AST 11 ALT 8 Alkaline Phosphatase 81 Total Protein 6.8 Albumin 2.8 L Albumin/Globulin Ratio 0.7 <NATHEN [place] - Last Filed: 04/06/18 12:31> Assessment and Plan - Patient Problems (1) Abdominal pain Current Visit: Yes Status: Acute Plan to address problem: The patient was seen and examined. She has had minimal improvement in pain but is passing some flatus. Surgical evaluation in progress. I suspect she has a partial SBO. She refused NG suction last PM as ordered. Xrays appear to be improved with gas now in the colon. (2) T2DM (type 2 diabetes mellitus) Current Visit: Yes Status: Chronic Objective - Constitutional Vitals: Temp Pulse Resp BP Pulse Ox 98.7 F 95 H 20 130/87 100 04/06/18 11:22 04/06/18 11:22 04/06/18 11:22 04/06/18 11:22 04/06/18 11:22 - Labs CBC & Chem 7: 04/06/18 06:46 04/06/18 06:46 Labs: Laboratory Results - last 24 hr 04/05/18 04/05/18 04/05/18 12:26 17:27 18:51 WBC RBC Hgb Hct MCV MCH MCHC RDW Plt Count Lymph % (Auto) [place] % (Auto) Eos % (Auto) Baso % (Auto) Lymph # [place] # Eos # Baso # Seg Neutrophils % Seg Neutrophils # Sodium Potassium Chloride Carbon Dioxide Anion Gap BUN Creatinine Estimated GFR BUN/Creatinine Ratio Glucose POC Glucose 236 H 188 H Lactic Acid 0.90 Calcium Total Bilirubin AST ALT Alkaline Phosphatase Total Protein Albumin Albumin/Globulin Ratio 04/05/18 04/06/18 04/06/18 22:12 06:46 06:46 WBC 14.1 H RBC 4.06 Hgb 12.6 Hct 37.5 MCV 92 MCH 31 MCHC 34 RDW 13.3 Plt Count 411 Lymph % (Auto) 10.7 L [place] % (Auto) 12.0 H Eos % (Auto) 0.7 Baso % (Auto) 0.4 Lymph # 1.5 [place] # 1.7 H Eos # 0.1 Baso # 0.1 Seg Neutrophils % 76.2 H Seg Neutrophils # 10.7 H Sodium 138 D Potassium 3.5 L Chloride 98.7 Carbon Dioxide 25 Anion Gap 18 BUN 4 L Creatinine 0.5 L Estimated GFR > 60 BUN/Creatinine Ratio 8 Glucose 129 H POC Glucose 146 H Lactic Acid Calcium 8.8 Total Bilirubin 1.10 AST 11 ALT 8 Alkaline Phosphatase 81 Total Protein 6.8 Albumin 2.8 L Albumin/Globulin Ratio 0.7 04/06/18 04/06/18 04/06/18 06:57 07:50 11:29 WBC RBC Hgb Hct MCV MCH MCHC RDW Plt Count Lymph % (Auto) [place] % (Auto) Eos % (Auto) Baso % (Auto) Lymph # [place] # Eos # Baso # Seg Neutrophils % Seg Neutrophils # Sodium Potassium Chloride Carbon Dioxide Anion Gap BUN Creatinine Estimated GFR BUN/Creatinine Ratio Glucose POC Glucose 136 H 130 H 111 H Lactic Acid Calcium Total Bilirubin AST ALT Alkaline Phosphatase Total Protein Albumin Albumin/Globulin Ratio
[2018-04-06] MEDS ORDERED: MORPHINE IV PRN (10:53)
[2018-04-06] MEDS ORDERED: ceFAZolin 2 GM in NACL 0.9% 100 ML IV ONE ×2 (12:04→15:15)
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
--- NOTE | 2018-04-06 14:11 | Anesthesia Day of Surgery ---
Anesthesia Day of Surgery - Day of Surgery Patient Examined: Yes Patient H&P Reviewed: Yes Patient is NPO: Yes
--- NOTE | 2018-04-06 14:13 | Anesthesia Consultation ---
Anesthesia Consult and Med Hx Date of service: 04/06/18 - Airway Anesthetic Teeth Evaluation: Chipped ROM Head & Neck: Adequate Mental/Hyoid Distance: Adequate Mallampati Class: Class II Intubation Access Assessment: Probably Good - Pulmonary Exam CTA: Yes - Cardiac Exam Cardiac Exam: RRR - Pre-Operative Health Status ASA Pre-Surgery Classification: ASA3 Proposed Anesthetic Plan: General - Pulmonary Hx Smoking: Yes Hx Asthma: Yes COPD: No Hx Pneumonia: No - Cardiovascular System Hx Hypertension: Yes - Endocrine Hx End Stage Renal Disease: No
[2018-04-06] MEDS ORDERED: ZOFRAN IV PRN (14:17)
[2018-04-06] MEDS ORDERED: DILAUDID IV PRN (14:17)
[2018-04-06] MEDS ORDERED: DIPRIVAN 10 MG/ML IV ONE (14:31)
[2018-04-06] MEDS ORDERED: XYLOCAINE MPF 2% ONE (14:32)
[2018-04-06] MEDS ORDERED: LOPRESSOR IV ONE (14:32)
[2018-04-06] MEDS ORDERED: ZEMURON IV ONE ×2 (14:33→21:29)
[2018-04-06] MEDS ORDERED: ZOFRAN ONE (14:34)
[2018-04-06] MEDS ORDERED: DILAUDID ONE (14:34)
[2018-04-06] MEDS ORDERED: DECADRON ONE (14:34)
[2018-04-06] MEDS ORDERED: LACTATED RINGERS 1,000 ML IV SCH ×2 (15:00)
[2018-04-06] MEDS ORDERED: VERSED IV NR (15:00)
[2018-04-06] MEDS ORDERED: REGLAN IV NR (15:00)
[2018-04-06] MEDS ORDERED: ZOFRAN IV NR (15:00)
[2018-04-06] MEDS ORDERED: TRANSDERM-SCOP TD NR (15:00)
[2018-04-06] MEDS ORDERED: ANCEF/STERILE WATER 2 GM/20 ML IV NR (15:44)
[2018-04-06] MEDS ORDERED: QUELICIN ONE (19:05)
[2018-04-06] MEDS ORDERED: XYLOCAINE 1% 20 mL ONE (19:53)
[2018-04-06] MEDS ORDERED: MARCAINE 0.5% 30 ML INFILTRATI ONE (19:53)
[2018-04-06] MEDS ORDERED: NACL 0.9% 1000 ML 1,000 ML ONE (20:58)
[2018-04-06] MEDS ORDERED: MARCAINE 0.5% INFILTRATI ONE (21:30)
[2018-04-06] MEDS ORDERED: XYLOCAINE 1% 20 mL INFILTRATI ONE (21:30)
[2018-04-06] MEDS ORDERED: TORADOL ONE (21:31)
--- NOTE | 2018-04-06 22:07 | Post Operative Note ---
Date of procedure: 04/06/18 (Dictation#[id number]) Pre-op diagnosis: RLQ abdominal pain Post-op diagnosis: same Findings: inflammatory reaction in RLQ. No obstruction seen. All bowel viable. Procedure: Dx Laparoscopy Lysis of adhesions Anesthesia: EMMA Surgeon: JUDITH DESOUZA Estimated blood loss: minimal Pathology: none Condition: stable Disposition: PACU
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
[2018-04-06] MEDS: TORADOL IV SCH (23:51)
[2018-04-06] MEDS: HEPARIN SUB-Q SCH (23:56)
[2018-04-07] MEDS: SODIUM CHLORIDE FLUSH SYRINGE 10 ML IV SCH ×3 (00:10→22:14)
[2018-04-07] MEDS: FLAGYL 500 MG/100 ML 500 MG/100 ML BAG IV SCH ×4 (01:17→22:13)
[2018-04-07] MEDS: HumaLOG SUB-Q SCH ×4 (01:29→17:48)
[2018-04-07] MEDS: NACL 0.9% 1000 ML 1,000 ML IV SCH (04:14)
[2018-04-07 06:03] LABS: Hematocrit 37.4 % (30.3-42.9); Hemoglobin 12.6 gm/dl (10.1-14.3); Mean Corpuscular HGB Conc 34 % (30-34); Mean Corpuscular Hemoglobin 31 pg (28-32); Mean Corpuscular Volume 92 fl (79-97); Platelet Count 451 K/mm3 (140-440); Red Blood Count 4.09 M/mm3 (3.65-5.03); Red Cell Distribution Width 13.3 % (13.2-15.2)
[2018-04-07] MEDS: ZOSYN/NS 4.5GM/100ML 4.5 GM/100 ML VIAL IV SCH (06:23)
[2018-04-07 06:24] LABS: BUN/Creatinine Ratio 16; Blood Urea Nitrogen 8 mg/dL (7-17); Calcium 8.8 mg/dL (8.4-10.2); Hemolysis Index 6
[2018-04-07] MEDS: TORADOL IV SCH ×5 (06:24→22:12)
[2018-04-07] MEDS: HEPARIN SUB-Q SCH ×4 (06:25→22:11)
[2018-04-07 08:32] LABS: Band Neutrophils # (Manual) 0.3 K/mm3; Basophils % (Manual) 0 % (0.0-1.8); Eosinophils % (Manual) 0 % (0.0-4.3); Total Cells Counted 100
[2018-04-07 08:33] LABS: Large Platelets Few; RBC Morphology Normal
[2018-04-07] MEDS ORDERED: NORCO 5/325 PO PRN (08:56)
--- NOTE | 2018-04-07 10:30 | Progress Note ---
Assessment and Plan - Patient Problems (1) Abdominal pain Current Visit: Yes Status: Acute Qualifiers: Abdominal location: right lower quadrant Qualified Code(s): R10.31 - Right lower quadrant pain Plan to address problem: Pt stable. s/p Dx lap with lysis of adhesions. 04/06/18 - POD#1. Pt feels better. Did not find obstruction or nonviable bowel. Only inflammatory changes seen primarily in RLQ. Leukocytosis attributed to stress rxn from surgery as she is feeling better. Will advance diet and HL IV. Encouraged her to ambulate. CBC in AM. Time=10min Subjective Date of service: 04/07/18 Patient Reports: Positive: feels better, pain is less, tolerating liquids well, flatus. Negative: nausea, vomiting Objective Vital Signs - 12hr 04/06/18 04/06/18 04/07/18 22:30 23:08 06:04 Temperature 97.5 F L 98.4 F Pulse Rate 104 H 86 Respiratory 11 L 18 20 Rate Blood Pressure 123/67 131/76 123/88 O2 Sat by Pulse 95 93 Oximetry - General physical appearance no distress, no pain - Eyes normal occular movement - Respiratory normal expansion, normal respiratory effort - Abdomen soft, tender (but less in RLQ.), bowel sounds normal, distended (mild), not guarding, not rigid, surgical scars (C/D/I) - Psychiatric oriented to time, oriented to person, oriented to place, speech is normal, memory intact - Labs 04/07/18 05:32 04/07/18 05:32 Diabetes panel 04/07/18 Range/Units 05:32 Sodium 137 (137-145) mmol/L Potassium 3.9 (3.6-5.0) mmol/L Chloride 98.0 (98-107) mmol/L Carbon Dioxide 24 (22-30) mmol/L BUN 8 (7-17) mg/dL Creatinine 0.5 L (0.7-1.2) mg/dL Glucose 250 H (65-100) mg/dL Calcium 8.8 (8.4-10.2) mg/dL Calcium panel 04/07/18 Range/Units 05:32 Calcium 8.8 (8.4-10.2) mg/dL Pituitary panel 04/07/18 Range/Units 05:32 Sodium 137 (137-145) mmol/L Potassium 3.9 (3.6-5.0) mmol/L Chloride 98.0 (98-107) mmol/L Carbon Dioxide 24 (22-30) mmol/L BUN 8 (7-17) mg/dL Creatinine 0.5 L (0.7-1.2) mg/dL Glucose 250 H (65-100) mg/dL Calcium 8.8 (8.4-10.2) mg/dL Adrenal panel 04/07/18 Range/Units 05:32 Sodium 137 (137-145) mmol/L Potassium 3.9 (3.6-5.0) mmol/L Chloride 98.0 (98-107) mmol/L Carbon Dioxide 24 (22-30) mmol/L BUN 8 (7-17) mg/dL Creatinine 0.5 L (0.7-1.2) mg/dL Glucose 250 H (65-100) mg/dL Calcium 8.8 (8.4-10.2) mg/dL
[2018-04-07] MEDS: LEVAQUIN 750MG/150ML 750 MG/150 ML BAG IV SCH (10:58)
--- NOTE | 2018-04-07 10:58 | Gastroenterology Progress Note ---
Assessment and Plan 1.abdominal pain 2.DM 3.asthma -CT showed dilated loops of distal jejunum in the right lower quadrant with mild wall thickening. colon is nondilated -KUB showed ileus -etiology unclear- possible evolving obstruction vs enterocolitis (ischemia is possible although less likely due to age vs acute process) -s/p dx lab with lysis of adhesions yesterday (no evidence of obstruction or nonviable bowel found, only inflammatory changes) -clinically this am, patient reports feeling better with abd pain improving and no N/V -tolerating clears-advance diet as tolerated -encourage OOB -continue supportive care -no further GI recommendations at this time, will defer further management per surgery -will sign off, please call if needed Subjective Date of service: 04/07/18 Principal diagnosis: abdominal pain Interval history: Patient sitting up in bed this am w/o acute distress. Reports feeling better with abd pain improved. Denies N/V. Tolerating clears. Objective - Constitutional Vitals: Temp Pulse Resp BP Pulse Ox 98.4 F 86 20 123/88 93 04/07/18 06:04 04/07/18 06:04 04/07/18 06:04 04/07/18 06:04 04/07/18 06:04 General appearance: no acute distress - Respiratory Respiratory: bilateral: CTA - Cardiovascular Rhythm: regular Heart Sounds: Present: S1 & S2 - Gastrointestinal General gastrointestinal: Present: soft, tender, distended (slightly), normal bowel sounds, other (no guarding, no rigid, surgical scars (C/D/I)) - Neurologic Neurological: alert and oriented x3 - Labs CBC & Chem 7: 04/07/18 05:32 04/07/18 05:32 Labs: Laboratory Results - last 24 hr 04/06/18 04/06/18 04/07/18 11:29 15:15 01:11 WBC RBC Hgb Hct MCV MCH MCHC RDW Plt Count Add Manual Diff Total Counted Seg Neutrophils % Seg Neuts % (Manual) Band Neutrophils % Lymphocytes % (Manual) Reactive Lymphs % (Man) Monocytes % (Manual) Eosinophils % (Manual) Basophils % (Manual) Metamyelocytes % Myelocytes % Promyelocytes % Blast Cells % Nucleated RBC % Seg Neutrophils # Man Band Neutrophils # Lymphocytes # (Manual) Abs React Lymphs (Man) Monocytes # (Manual) Eosinophils # (Manual) Basophils # (Manual) Metamyelocytes # Myelocytes # Promyelocytes # Blast Cells # WBC Morphology Hypersegmented Neuts Hyposegmented Neuts Hypogranular Neuts Smudge Cells Toxic Granulation Toxic Vacuolation Dohle Bodies Pelger-Huet Anomaly Sascha Rods Platelet Estimate Clumped Platelets Plt Clumps, EDTA Large Platelets Giant Platelets Platelet Satelliting Plt Morphology Comment RBC Morphology Dimorphic RBCs Polychromasia Hypochromasia Poikilocytosis Anisocytosis Microcytosis Macrocytosis Spherocytes Pappenheimer Bodies Sickle Cells Target Cells Tear Drop Cells Ovalocytes Helmet Cells Cardoza-Menno Bodies [place] Rings Vesta Cells Bite Cells Crenated Cell Elliptocytes Acanthocytes (Spur) Rouleaux Hemoglobin C Crystals Schistocytes Malaria parasites Elias Bodies Hem Pathologist Commnt Sodium Potassium Chloride Carbon Dioxide Anion Gap BUN Creatinine Estimated GFR BUN/Creatinine Ratio Glucose POC Glucose 111 H 93 245 H Calcium 04/07/18 04/07/18 04/07/18 05:32 05:32 06:55 WBC 16.7 H RBC 4.09 Hgb 12.6 Hct 37.4 MCV 92 MCH 31 MCHC 34 RDW 13.3 Plt Count 451 H Add Manual Diff Complete Total Counted 100 Seg Neutrophils % Freelance Art Director Seg Neuts % (Manual) 92.0 H Band Neutrophils % 2.0 Lymphocytes % (Manual) 5.0 L Reactive Lymphs % (Man) 0 Monocytes % (Manual) 1.0 Eosinophils % (Manual) 0 Basophils % (Manual) 0 Metamyelocytes % 0 Myelocytes % 0 Promyelocytes % 0 Blast Cells % 0 Nucleated RBC % Not Reportable Seg Neutrophils # Man 15.4 H Band Neutrophils # 0.3 Lymphocytes # (Manual) 0.8 L Abs React Lymphs (Man) 0.0 Monocytes # (Manual) 0.2 Eosinophils # (Manual) 0.0 Basophils # (Manual) 0.0 Metamyelocytes # 0.0 Myelocytes # 0.0 Promyelocytes # 0.0 Blast Cells # 0.0 WBC Morphology Not Reportable Hypersegmented Neuts Not Reportable Hyposegmented Neuts Not Reportable Hypogranular Neuts Not Reportable Smudge Cells Not Reportable Toxic Granulation Not Reportable Toxic Vacuolation Not Reportable Dohle Bodies Not Reportable Pelger-Huet Anomaly Not Reportable Sascha Rods Not Reportable Platelet Estimate Appears normal Clumped Platelets Not Reportable Plt Clumps, EDTA Not Reportable Large Platelets Few Giant Platelets Not Reportable Platelet Satelliting Not Reportable Plt Morphology Comment Not Reportable RBC Morphology Normal Dimorphic RBCs Not Reportable Polychromasia Not Reportable Hypochromasia Not Reportable Poikilocytosis Not Reportable Anisocytosis Not Reportable Microcytosis Not Reportable Macrocytosis Not Reportable Spherocytes Not Reportable Pappenheimer Bodies Not Reportable Sickle Cells Not Reportable Target Cells Not Reportable Tear Drop Cells Not Reportable Ovalocytes Not Reportable Helmet Cells Not Reportable Cardoza-Menno Bodies Not Reportable [place] Rings Not Reportable Vesta Cells Not Reportable Bite Cells Not Reportable Crenated Cell Not Reportable Elliptocytes Not Reportable Acanthocytes (Spur) Not Reportable Rouleaux Not Reportable Hemoglobin C Crystals Not Reportable Schistocytes Not Reportable Malaria parasites Not Reportable Elias Bodies Not Reportable Hem Pathologist Commnt No Sodium 137 Potassium 3.9 Chloride 98.0 Carbon Dioxide 24 Anion Gap 19 BUN 8 Creatinine 0.5 L Estimated GFR > 60 BUN/Creatinine Ratio 16 Glucose 250 H POC Glucose 233 H Calcium 8.8 04/07/18 08:13 WBC RBC Hgb Hct MCV MCH MCHC RDW Plt Count Add Manual Diff Total Counted Seg Neutrophils % Seg Neuts % (Manual) Band Neutrophils % Lymphocytes % (Manual) Reactive Lymphs % (Man) Monocytes % (Manual) Eosinophils % (Manual) Basophils % (Manual) Metamyelocytes % Myelocytes % Promyelocytes % Blast Cells % Nucleated RBC % Seg Neutrophils # Man Band Neutrophils # Lymphocytes # (Manual) Abs React Lymphs (Man) Monocytes # (Manual) Eosinophils # (Manual) Basophils # (Manual) Metamyelocytes # Myelocytes # Promyelocytes # Blast Cells # WBC Morphology Hypersegmented Neuts Hyposegmented Neuts Hypogranular Neuts Smudge Cells Toxic Granulation Toxic Vacuolation Dohle Bodies Pelger-Huet Anomaly Sascha Rods Platelet Estimate Clumped Platelets Plt Clumps, EDTA Large Platelets Giant Platelets Platelet Satelliting Plt Morphology Comment RBC Morphology Dimorphic RBCs Polychromasia Hypochromasia Poikilocytosis Anisocytosis Microcytosis Macrocytosis Spherocytes Pappenheimer Bodies Sickle Cells Target Cells Tear Drop Cells Ovalocytes Helmet Cells Cardoza-Menno Bodies [place] Rings Vesta Cells Bite Cells Crenated Cell Elliptocytes Acanthocytes (Spur) Rouleaux Hemoglobin C Crystals Schistocytes Malaria parasites Elias Bodies Hem Pathologist Commnt Sodium Potassium Chloride Carbon Dioxide Anion Gap BUN Creatinine Estimated GFR BUN/Creatinine Ratio Glucose POC Glucose 262 H Calcium
[2018-04-07] MEDS: PEPCID IV SCH ×2 (10:59→22:13)
--- NOTE | 2018-04-07 12:19 | Progress Note ---
Assessment and Plan /Enterocolitis. Continue levaquin and Flagyl iv iv fluids, started on diet Morphine iv prn pain /Abdominal pain, due to enterocolitis /Possible partial small bowel obstruction versus ileus. s/p Dx lap with lysis of adhesions, no obstruction or nonviable bowel, only inflammatory changes seen primarily in RLQ. GI and surgeon following /Diabetes mellitus type 2. Fingerstick q 6h /Hypokalemia. Replace and recheck /asthma, stable Full code status. Hospitalist Physical Gen : Not in acute distress, obese HEENT:Normocephalic, atraumatic Neck: supple, No JVD Lungs: Clear to auscultation, bilaterally, no rhonchi, no wheeze Heart :S1 and S2 reg, no murmurs, rubs or gallop Abd:soft, tender mid and lower abdomen, no rebound tenderness, mild distension, decreased bowel sounds Ext: No edema, no clubbing, no cyanosis, Neuro: Awake,alert,oriented x 3, no focal signs Subjective Date of service: 04/07/18 Principal diagnosis: abdominal pain Interval history: Pt seen and examined started on diet, had BM today Objective - Constitutional Vitals: Vital Signs - 12hr 04/07/18 06:04 Temperature 98.4 F Pulse Rate 86 Respiratory 20 Rate Blood Pressure 123/88 O2 Sat by Pulse 93 Oximetry - Labs CBC & Chem 7: 04/07/18 05:32 04/07/18 05:32 Labs: Abnormal lab results 04/07/18 04/07/18 04/07/18 Range/Units 01:11 05:32 05:32 WBC 16.7 H (4.5-11.0) K/mm3 Plt Count 451 H (140-440) K/mm3 Seg Neuts % (Manual) 92.0 H (40.0-70.0) % Lymphocytes % (Manual) 5.0 L (13.4-35.0) % Seg Neutrophils # Man 15.4 H (1.8-7.7) K/mm3 Lymphocytes # (Manual) 0.8 L (1.2-5.4) K/mm3 Creatinine 0.5 L (0.7-1.2) mg/dL Glucose 250 H (65-100) mg/dL POC Glucose 245 H (70-105) 07/10/18 07/10/18 Range/Units 06:55 08:13 WBC (4.5-11.0) K/mm3 Plt Count (140-440) K/mm3 Seg Neuts % (Manual) (40.0-70.0) % Lymphocytes % (Manual) (13.4-35.0) % Seg Neutrophils # Man (1.8-7.7) K/mm3 Lymphocytes # (Manual) (1.2-5.4) K/mm3 Creatinine (0.7-1.2) mg/dL Glucose (65-100) mg/dL POC Glucose 233 H 262 H (70-105)
[2018-04-07] MEDS: GLUCOPHAGE PO SCH (17:56)
[2018-04-07] MEDS: GLUCOTROL PO SCH (17:56)
[2018-04-07] MEDS ORDERED: GLIPIZIDE PO SCH (22:00)
[2018-04-07] MEDS ORDERED: METFORMIN HCL PO SCH (22:00)
[2018-04-08] MEDS: TORADOL IV SCH ×4 (04:59→21:44)
[2018-04-08] MEDS: HEPARIN SUB-Q SCH ×3 (06:00→21:44)
[2018-04-08 06:02] LABS: Basophils # (Auto) 0.1 K/mm3 (0.0-0.1); Basophils % (Auto) 0.6 % (0.0-1.8); Eosinophils # (Auto) 0.1 K/mm3 (0.0-0.4); Hematocrit 35.5 % (30.3-42.9); Hemoglobin 11.9 gm/dl (10.1-14.3); Lymphocytes # (Auto) 2.9 K/mm3 (1.2-5.4); Lymphocytes % (Auto) 22.1 % (13.4-35.0); Mean Corpuscular HGB Conc 34 % (30-34); Mean Corpuscular Hemoglobin 31 pg (28-32); Mean Corpuscular Volume 91 fl (79-97); Monocytes # (Auto) 1.2 K/mm3 (0.0-0.8); Monocytes % (Auto) 8.7 % (0.0-7.3); Platelet Count 498 K/mm3 (140-440); Red Cell Distribution Width 13.6 % (13.2-15.2)
[2018-04-08] MEDS: FLAGYL 500 MG/100 ML 500 MG/100 ML BAG IV SCH (06:06)
[2018-04-08] MEDS: HumaLOG SUB-Q SCH ×4 (06:41→18:00)
[2018-04-08] MEDS: GLUCOTROL PO SCH ×3 (08:23→17:30)
[2018-04-08] MEDS: GLUCOPHAGE PO SCH ×3 (08:23→17:28)
[2018-04-08] MEDS: LEVAQUIN 750MG/150ML 750 MG/150 ML BAG IV SCH (10:02)
[2018-04-08] MEDS: PEPCID PO SCH ×2 (10:03→21:42)
[2018-04-08] MEDS: SODIUM CHLORIDE FLUSH SYRINGE 10 ML IV SCH ×2 (10:03→23:26)
--- NOTE | 2018-04-08 10:45 | Progress Note ---
Assessment and Plan - Patient Problems (1) Abdominal pain Current Visit: Yes Status: Acute Qualifiers: Abdominal location: right lower quadrant Qualified Code(s): R10.31 - Right lower quadrant pain Plan to address problem: Pt stable. s/p Dx lap with lysis of adhesions. 04/06/18 - POD#2. Pt feels better. Seems to continue to improve. I gave a copy of the pictures from the operation. I advised her that if in the future she has recurrent pain in the right lower quadrant, she should see a security and privacy consultant. The mass we identified seems to be part of the uterus. The security and privacy consultant can evaluate and manage as appropriate. From my perspective, she is cleared. She may be discharged. Of note, when I mentioned this, she stated that she was homeless and had nowhere to go. She was asking for one more day. I advised her to speak with the hospitalists. Please call if there any questions. Time=10min Subjective Date of service: 04/08/18 Patient Reports: Positive: no new complaints, feels better, still having pain ( but much less), tolerating a regular diet. Negative: nausea, vomiting Objective Vital Signs - 12hr 04/07/18 04/08/18 23:03 05:20 Temperature 98.1 F 98.5 F Pulse Rate 88 89 Respiratory 20 20 Rate Blood Pressure 149/75 139/79 O2 Sat by Pulse 96 93 Oximetry - General physical appearance well developed, well nourished, no distress, no pain - Eyes normal occular movement - Respiratory normal expansion, normal respiratory effort - Abdomen soft, tender (less than before. minimal in RLQ), not guarding, not rigid, surgical scars (C/d/I) - Integumentary no rash, no growths, no abnormal pigmentation - Psychiatric oriented to time, oriented to person, oriented to place, speech is normal, memory intact - Labs 04/08/18 05:41 04/07/18 05:32
--- NOTE | 2018-04-08 12:37 | Discharge Summary ---
Providers - Providers Date of Admission: 04/04/18 16:07 Date of discharge: 04/08/18 Attending physician: ONDINA SOMMERS 04/04/18 20:40 Consult to Physician [CONS] Routine Comment: Consulting Provider: HARMAN MAX Physician Instructions: Reason For Exam: Colitis 04/05/18 17:25 Consult to Physician [CONS] Routine Comment: Consulting Provider: JUDITH DESOUZA Physician Instructions: Reason For Exam: abdominal pain, partial SBO Primary care physician: CARAMEL CANDY MAKER Hospitalization Condition: Stable Pertinent studies: CT abdomen/pelvis w contrast: Bowel findings suggest enterocolitis. Differential diagnosis would include low grade incomplete obstruction and ileus. Diarrhea suspected in the right proximal colon. No evidence for complete obstruction. Small to moderate free fluid in the abdomen pelvis is nonspecific. Findings could be related to enterocolitis. Fatty liver versus hepatocellular disease. Fatty liver favored. No distinct lesions. Suspect fibroid uterus. Correlation with pelvic ultrasound may be helpful if clinically indicated. Hospital course: The patient is a 32-year-old female with noninsulin-dependent diabetes mellitus presented with progressive severe diffuse abdominal pain. The patient had an abnormal CT scan of the abdomen revealing some thickening and dilation of the distal jejunal loops of bowel with some concern for ileus vs obstruction. She has had a section and laparoscopic cholecystectomy in the past. GS was consulted and she had Dx lap by GS with lysis of adhesions, no obstruction or nonviable bowel, only inflammatory changes seen primarily in RLQ. She was continued with iv abx and advanced diet which she was tolerating. She was then discharged home in stable condition. Discharge diagnosis and management; /Enterocolitis. Placed on levaquin and Flagyl iv, iv fluids, Morphine iv prn pain Diet started when clinically improved and was tolerating /Abdominal pain, due to enterocolitis, improved /Sepsis, POA, due to enterocolitis /Possible partial small bowel obstruction versus ileus. s/p Dx lap with lysis of adhesions, no obstruction or nonviable bowel, only inflammatory changes seen primarily in RLQ. GI and surgeon was following Improved clinically prior to discharge /Diabetes mellitus type 2. managed with subqu insulin with Fingerstick q 6h also resume home oral hypoglycemic /Hypokalemia. Replaced /asthma, stable Full code status. Hospitalist Physical Gen : Not in acute distress, obese HEENT:Normocephalic, atraumatic Neck: supple, No JVD Lungs: Clear to auscultation, bilaterally, no rhonchi, no wheeze Heart :S1 and S2 reg, no murmurs, rubs or gallop Abd:soft, mild tender mid and lower abdomen, no rebound tenderness, mild distension, normal bowel sounds Ext: No edema, no clubbing, no cyanosis, Neuro: Awake,alert,oriented x 3, no focal signs Disposition: AR-01 TO HOME OR SELFCARE Time spent for discharge: 32 minutes Core Measure Documentation - Palliative Care Palliative Care/ Comfort Measures: Not Applicable - Core Measures Any of the following diagnoses?: none Exam - Constitutional Vitals: Temp Pulse Resp BP Pulse Ox 98.5 F 89 20 139/79 93 04/08/18 05:20 04/08/18 05:20 04/08/18 05:20 04/08/18 05:20 04/08/18 05:20 Plan Activity: advance as tolerated Weight Bearing Status: Non-Weight Bearing Diet: advance as tolerated Additional Instructions: f/u at [facility] or PCP in one week Follow up with: PRIMARY CARE, [Primary Care Provider] - 3-5 Days Prescriptions: HYDROcodone/APAP 5-325 [[place] 5-325 mg TAB] 2 each PO Q6H PRN #7 tablet PRN Reason: Pain, Moderate (4-6) Levofloxacin [Levaquin TAB] 750 mg PO Q24HR #5 tablet metroNIDAZOLE [Flagyl TAB] 500 mg PO Q8HR #14 tablet
[2018-04-08 14:08] VITALS: BP 148/82
[2018-04-08] MEDS: FLAGYL PO SCH ×2 (14:27→21:42)
[2018-04-09] MEDS ORDERED: LEVAQUIN PO SCH (10:00)
--- NOTE | 2018-04-09 10:27 | Event Note ---
Date: 04/09/18 Patient was discharge 1:00am, she was not discharge earlier because she did not have access to her place as her roommate was out of town.
== END 2018-04-09 01:00 | disposition home or self-care (01) | DRG 854 ==
LOC: ED 05:48 → 3A 16:07
PROVIDERS: ADMIT Internal Medicine; ATTEND Internal Medicine
PROC: 0DN84ZZ Release Small Intestine, Percutaneous Endoscopic Approach (ICD-10-PCS; principal; 2018-04-04)
DX: A41.9 Sepsis, unspecified organism (principal); K56.51 Intestinal adhesions [bands], with partial obstruction; K52.9 Noninfective gastroenteritis and colitis, unspecified; E11.9 Type 2 diabetes mellitus without complications; J45.909 Unspecified asthma, uncomplicated; E87.6 Hypokalemia; I10 Essential (primary) hypertension; Z90.49 Acquired absence of other specified parts of digestive tract
CPT/HCPCS: 36415; 74019; 74177; 80048; 80053; 81001; 81025; 82140; 82962; 83036; 83690; 84703; 85007; 85025; 87040; 96365; 96375; 96376; J0330; J0690; J1100; J1170; J1644; J1815; J1885; J1956; J2250; J2270; J2405; J2543; J2704; J2765; J3010; J7030; J7042; J7120; Q9967